=== PATIENT | female | born 1980 | race Two or more races ===

== ENCOUNTER 2025-05-02 00:59 | Emergency (ER) | payer OTHER ==
[~2025-05-02] VITALS: Ht 162.6 cm; Wt 90.7 kg
[2025-05-02] MEDS ORDERED: SYNTHROID200 MCG PO (01:21)
[2025-05-02] MEDS ORDERED: PROGESTERONE200 MG PO (01:22)
[2025-05-02] MEDS ORDERED: KETOROLAC TROMETHAMINE 60 MG VIAL IM STA (02:03)
[2025-05-02] MEDS ORDERED: TRAMADOL HCL 50 MG TABLET PO STA (02:04)
[2025-05-02] MEDS ORDERED: KETOROLAC TROMETHAMINE 60 MG VIAL IM ONE (02:12)
[2025-05-02 03:32] LABS: BASO % 1.2 % (0.1-1.2); EOS # 0.19 (0.04-0.54); HEMOGLOBIN 12.2 g/dL (11.2-15.7); LYMPH # 2.88 (1.18-3.74); LYMPH % 30.6 % (19.3-53.1); MEAN CORPUSCULAR HEMOGLOBIN 25.1 pg (25.6-32.2); MONO # 0.83 (0.24-0.82); MONO % 8.8 % (4.7-12.5); NEUT # 5.37 (1.56-6.13); NEUT % 57.1 % (34.0-71.1); PLATELET COUNT 357 K/uL (163-369); RED BLOOD COUNT 4.87 M/uL (3.93-5.22); RED CELL DISTRIBUTION WIDTH 20.6 % (11.6-14.4)
[2025-05-02 03:34] LABS: PH,URINE 5.5 (5.0-8.0); URINE APPEARANCE Clear; URINE BILIRRUBIN Negative (NEGATIVE); URINE BLOOD Negative; URINE COLOR Yellow; URINE GLUCOSE Negative (NEGATIVE); URINE KETONE Negative (NEGATIVE); URINE LEUKOCYTE Negative; URINE NITRATE Negative; URINE PROTEIN Negative (NEGATIVE); URINE UROBILINOGEN 0.2 E.U./dl
[2025-05-02 03:38] LABS: URINE BACTERIA 20.7 uL (0.0-1933); URINE EPITHELIAL CELLS 2.6 uL (0.0-38.8)
[2025-05-02 03:41] LABS: URINE RBC 0.5 uL (0.0-20.8); URINE WBC 0.6 uL (0.0-23.2)
== END 2025-05-02 03:59 | disposition home or self-care (01) ==
LOC: ER 01:24
DX: R30.0 Dysuria (principal); K59.00 Constipation, unspecified

== ENCOUNTER 2025-06-22 05:11 | Day surgery (SDC) | payer OTHER ==
[2025-06-15 12:55] VITALS: BP 113/70
[~2025-06-22] VITALS: Ht 162.6 cm; Wt 90.7 kg
[~2025-06-22 05:11] MED LIST: PANADOL MAXIMU500 MG PO; PROGESTERONE200 MG PO; SYNTHROID200 MCG PO
[2025-06-22] MEDS ORDERED: BUPIVACAINE HCL/MPF 0.5% 30ML VIAL ONE (07:04)
[2025-06-22] MEDS ORDERED: LIDOCAINE HCL 1%/EPINEPHRINE 20ML VIAL IJ ONE (07:05)
[2025-06-22 07:33] LABS: ALT/SGPT 47.0 U/L (12-78); AST/SGOT 41.0 U/L (15-37); BILIRUBIN TOTAL 0.53 mg/dL (0.3-1.2); BUN CREA RATIO 16.0 (7.0-25.0); CREATININE SERUM 0.62 mg/dL (0.55-1.02); GFR 104.57; GLOBULINA 3.9 G/DL (2.4-3.5); GLUCOSE FASTING 94.0 mg/dL (65-100); OSMOLALITY SERUM 280.0 MOSM/KG (275-295)
[2025-06-22] MEDS ORDERED: CEFAZOLIN SODIUM 1,000 MG VIAL ONE ×2 (07:50→09:56)
[2025-06-22] MEDS ORDERED: SUGAMMADEX SODIUM 200 MG/2 ML VIAL IV ONE (08:59)
[2025-06-22] MEDS ORDERED: FAMOTIDINE/PF 20 MG/2 ML VIAL ONE (09:56)
[2025-06-22] MEDS ORDERED: CEFAZOLIN SODIUM 1,000 MG VIAL IV SCH (10:00)
[2025-06-22] MEDS ORDERED: FAMOTIDINE/PF 20 MG/10 ML SYRINGE IV SCH (10:00)
[2025-06-22] MEDS ORDERED: MORPHINE SULFATE 4 MG/ML VIAL IV ONE (10:15)
== END 2025-06-22 11:50 | disposition home or self-care (01) ==
LOC: CIR.AMB 05:11
PROVIDERS: ATTEND Specialist
DX: K80.10 Calculus of gallbladder with chronic cholecystitis without obstruction (principal)